=== PATIENT | female | born 1980 | race Hispanic/Latino ===

== ENCOUNTER → 2022-03-09 | Outpatient (CLI) | payer MEDICAID | END | disposition home or self-care (01) | LOC: WHH 10:28 | PROVIDERS: ATTEND Family Medicine | DX: L89.152 Pressure ulcer of sacral region, stage 2 (principal); S31.829A Unspecified open wound of left buttock, initial encounter; L02.31 Cutaneous abscess of buttock; I10 Essential (primary) hypertension; E78.5 Hyperlipidemia, unspecified; G82.21 Paraplegia, complete; M81.0 Age-related osteoporosis without current pathological fracture; Z79.899 Other long term (current) drug therapy; X58.XXXA Exposure to other specified factors, initial encounter; Y93.89 Activity, other specified; Y92.89 Other specified places as the place of occurrence of the external cause; Y99.8 Other external cause status | CPT/HCPCS: 97605; G0463 ==

== ENCOUNTER → 2022-03-23 | Outpatient (CLI) | payer MEDICAID | END | disposition home or self-care (01) | LOC: WHH 13:08 | PROVIDERS: ATTEND Family Medicine | DX: L89.152 Pressure ulcer of sacral region, stage 2 (principal); S31.829D Unspecified open wound of left buttock, subsequent encounter; L02.31 Cutaneous abscess of buttock; I10 Essential (primary) hypertension; E78.5 Hyperlipidemia, unspecified; G82.21 Paraplegia, complete; M81.0 Age-related osteoporosis without current pathological fracture; Z79.899 Other long term (current) drug therapy; X58.XXXD Exposure to other specified factors, subsequent encounter | CPT/HCPCS: 97605 ==

== ENCOUNTER → 2022-04-06 | Outpatient (CLI) | payer MEDICAID | END | disposition home or self-care (01) | LOC: WHH 13:32 | PROVIDERS: ATTEND Family Medicine | DX: L89.152 Pressure ulcer of sacral region, stage 2 (principal); L89.892 Pressure ulcer of other site, stage 2; S31.829D Unspecified open wound of left buttock, subsequent encounter; L02.31 Cutaneous abscess of buttock; I10 Essential (primary) hypertension; E78.5 Hyperlipidemia, unspecified; G82.21 Paraplegia, complete; M81.0 Age-related osteoporosis without current pathological fracture; Z79.899 Other long term (current) drug therapy; X58.XXXD Exposure to other specified factors, subsequent encounter | CPT/HCPCS: 97605 ==

== ENCOUNTER → 2022-04-20 | Outpatient (CLI) | payer MEDICAID | END | disposition home or self-care (01) | LOC: WHH 13:40 | PROVIDERS: ATTEND Family Medicine | DX: L02.31 Cutaneous abscess of buttock (principal); L89.892 Pressure ulcer of other site, stage 2; L89.152 Pressure ulcer of sacral region, stage 2; S31.829D Unspecified open wound of left buttock, subsequent encounter; I10 Essential (primary) hypertension; E78.5 Hyperlipidemia, unspecified; G82.21 Paraplegia, complete; M81.0 Age-related osteoporosis without current pathological fracture; Z79.899 Other long term (current) drug therapy; X58.XXXD Exposure to other specified factors, subsequent encounter | CPT/HCPCS: 11042; 97605 ==

== ENCOUNTER → 2022-05-04 | Outpatient (CLI) | payer MEDICAID | END | disposition home or self-care (01) | LOC: WHH 13:34 | PROVIDERS: ATTEND Family Medicine | DX: L02.31 Cutaneous abscess of buttock (principal); L89.892 Pressure ulcer of other site, stage 2; L89.152 Pressure ulcer of sacral region, stage 2; S31.829D Unspecified open wound of left buttock, subsequent encounter; I10 Essential (primary) hypertension; E78.5 Hyperlipidemia, unspecified; G82.21 Paraplegia, complete; M81.0 Age-related osteoporosis without current pathological fracture; Z79.899 Other long term (current) drug therapy; X58.XXXD Exposure to other specified factors, subsequent encounter | CPT/HCPCS: 97605; A6022; 99214 ==

== ENCOUNTER → 2022-05-18 | Outpatient (CLI) | payer MEDICAID | END | disposition home or self-care (01) | LOC: WHH 13:31 | PROVIDERS: ATTEND Family Medicine | DX: L02.31 Cutaneous abscess of buttock (principal); L89.892 Pressure ulcer of other site, stage 2; L89.152 Pressure ulcer of sacral region, stage 2; S31.829D Unspecified open wound of left buttock, subsequent encounter; I10 Essential (primary) hypertension; E78.5 Hyperlipidemia, unspecified; G82.21 Paraplegia, complete; M81.0 Age-related osteoporosis without current pathological fracture; Z79.899 Other long term (current) drug therapy; X58.XXXD Exposure to other specified factors, subsequent encounter | CPT/HCPCS: 99214; A4450 ==

== ENCOUNTER → 2022-05-29 | Outpatient (CLI) | payer MEDICAID ==
[~2022-05-29] MED LIST: BALSAM PERU/CASTOR OIL 60 GM TUBE TP ONE
== END | disposition home or self-care (01) ==
LOC: WHH 13:37
PROVIDERS: ATTEND Nurse Practitioner Family
DX: L02.31 Cutaneous abscess of buttock (principal); L89.892 Pressure ulcer of other site, stage 2; L89.152 Pressure ulcer of sacral region, stage 2; S31.829D Unspecified open wound of left buttock, subsequent encounter; I10 Essential (primary) hypertension; E78.5 Hyperlipidemia, unspecified; G82.21 Paraplegia, complete; M81.0 Age-related osteoporosis without current pathological fracture; Z79.899 Other long term (current) drug therapy; X58.XXXD Exposure to other specified factors, subsequent encounter
CPT/HCPCS: 97605; A6022

== ENCOUNTER → 2022-06-12 | Outpatient (CLI) | payer MEDICAID | LOC: WHH 13:54 | PROVIDERS: ATTEND Nurse Practitioner Family | DX: L02.31 Cutaneous abscess of buttock (principal); L89.892 Pressure ulcer of other site, stage 2; L89.152 Pressure ulcer of sacral region, stage 2; S31.829D Unspecified open wound of left buttock, subsequent encounter; I10 Essential (primary) hypertension; E78.5 Hyperlipidemia, unspecified; G82.21 Paraplegia, complete; M81.0 Age-related osteoporosis without current pathological fracture; Z79.899 Other long term (current) drug therapy; X58.XXXD Exposure to other specified factors, subsequent encounter | CPT/HCPCS: 11042; 97605; A6022 ==

== ENCOUNTER → 2022-06-26 | Outpatient (CLI) | payer MEDICAID | END | disposition home or self-care (01) | LOC: WHH 13:44 | PROVIDERS: ATTEND Nurse Practitioner Family | DX: L02.31 Cutaneous abscess of buttock (principal); L89.892 Pressure ulcer of other site, stage 2; L89.152 Pressure ulcer of sacral region, stage 2; S31.829D Unspecified open wound of left buttock, subsequent encounter; I10 Essential (primary) hypertension; E78.5 Hyperlipidemia, unspecified; G82.21 Paraplegia, complete; M81.0 Age-related osteoporosis without current pathological fracture; Z79.899 Other long term (current) drug therapy; X58.XXXD Exposure to other specified factors, subsequent encounter | CPT/HCPCS: 11042; 97605; A6022 ==

== ENCOUNTER → 2022-07-17 | Outpatient (CLI) | payer MEDICAID | END | disposition home or self-care (01) | LOC: WHH 13:37 | PROVIDERS: ATTEND Nurse Practitioner Family | DX: L02.31 Cutaneous abscess of buttock (principal); L89.152 Pressure ulcer of sacral region, stage 2; S31.829D Unspecified open wound of left buttock, subsequent encounter; E11.9 Type 2 diabetes mellitus without complications; I10 Essential (primary) hypertension; E78.5 Hyperlipidemia, unspecified; G82.21 Paraplegia, complete; M81.0 Age-related osteoporosis without current pathological fracture; Z79.899 Other long term (current) drug therapy; X58.XXXD Exposure to other specified factors, subsequent encounter | CPT/HCPCS: 87070; 87077; 87186; 99214; A6248; A6197 ×3; A4450 ==

== ENCOUNTER → 2022-07-24 | Outpatient (CLI) | payer MEDICAID | END | disposition home or self-care (01) | LOC: WHH 13:41 | PROVIDERS: ATTEND Nurse Practitioner Family | DX: L02.31 Cutaneous abscess of buttock (principal); L89.324 Pressure ulcer of left buttock, stage 4; L89.892 Pressure ulcer of other site, stage 2; L89.152 Pressure ulcer of sacral region, stage 2; S31.829D Unspecified open wound of left buttock, subsequent encounter; I10 Essential (primary) hypertension; E78.5 Hyperlipidemia, unspecified; G82.21 Paraplegia, complete; M81.0 Age-related osteoporosis without current pathological fracture; Z79.899 Other long term (current) drug therapy; X58.XXXD Exposure to other specified factors, subsequent encounter | CPT/HCPCS: 99214; G0463 ==

== ENCOUNTER → 2022-08-07 | Outpatient (CLI) | payer MEDICAID | END | disposition home or self-care (01) | LOC: WHH 11:06 | PROVIDERS: ATTEND Nurse Practitioner Family | DX: L02.31 Cutaneous abscess of buttock (principal); L89.324 Pressure ulcer of left buttock, stage 4; L89.152 Pressure ulcer of sacral region, stage 2; L89.892 Pressure ulcer of other site, stage 2; S31.829D Unspecified open wound of left buttock, subsequent encounter; E11.9 Type 2 diabetes mellitus without complications; I10 Essential (primary) hypertension; E78.5 Hyperlipidemia, unspecified; G82.21 Paraplegia, complete; M81.0 Age-related osteoporosis without current pathological fracture; Z79.899 Other long term (current) drug therapy; X58.XXXD Exposure to other specified factors, subsequent encounter | CPT/HCPCS: 99214; A6248 ==

== ENCOUNTER → 2022-09-11 | Outpatient (CLI) | payer MEDICAID | END | disposition home or self-care (01) | LOC: WHH 10:52 | PROVIDERS: ATTEND Nurse Practitioner Family | DX: L02.31 Cutaneous abscess of buttock (principal); L89.324 Pressure ulcer of left buttock, stage 4; L89.152 Pressure ulcer of sacral region, stage 2; L89.892 Pressure ulcer of other site, stage 2; I10 Essential (primary) hypertension; E11.9 Type 2 diabetes mellitus without complications; E78.5 Hyperlipidemia, unspecified; M81.0 Age-related osteoporosis without current pathological fracture; G82.21 Paraplegia, complete; Z79.84 Long term (current) use of oral hypoglycemic drugs; Z79.4 Long term (current) use of insulin; Z79.899 Other long term (current) drug therapy | CPT/HCPCS: 99214; A6022 ==

== ENCOUNTER → 2022-10-09 | Outpatient (CLI) | payer MEDICAID | END | disposition home or self-care (01) | LOC: WHH 11:12 | PROVIDERS: ATTEND Nurse Practitioner Family | DX: L02.31 Cutaneous abscess of buttock (principal); L89.324 Pressure ulcer of left buttock, stage 4; L89.152 Pressure ulcer of sacral region, stage 2; I10 Essential (primary) hypertension; E11.9 Type 2 diabetes mellitus without complications; E78.5 Hyperlipidemia, unspecified; G82.21 Paraplegia, complete; M81.0 Age-related osteoporosis without current pathological fracture; Z79.84 Long term (current) use of oral hypoglycemic drugs; Z79.4 Long term (current) use of insulin; Z79.899 Other long term (current) drug therapy | CPT/HCPCS: 97605; A6022 ==

== ENCOUNTER → 2022-10-30 | Outpatient (CLI) | payer MEDICAID | END | disposition home or self-care (01) | LOC: WHH 10:45 | PROVIDERS: ATTEND Nurse Practitioner Family | DX: L02.31 Cutaneous abscess of buttock (principal); L89.324 Pressure ulcer of left buttock, stage 4; L89.152 Pressure ulcer of sacral region, stage 2; I10 Essential (primary) hypertension; E11.9 Type 2 diabetes mellitus without complications; E78.5 Hyperlipidemia, unspecified; G82.21 Paraplegia, complete; M81.0 Age-related osteoporosis without current pathological fracture; Z79.84 Long term (current) use of oral hypoglycemic drugs; Z79.4 Long term (current) use of insulin; Z79.899 Other long term (current) drug therapy | CPT/HCPCS: 97605; A6022 ==

== ENCOUNTER → 2022-11-13 | Outpatient (CLI) | payer MEDICAID | END | disposition home or self-care (01) | LOC: WHH 10:48 | PROVIDERS: ATTEND Nurse Practitioner Family | DX: L02.31 Cutaneous abscess of buttock (principal); L89.324 Pressure ulcer of left buttock, stage 4; L89.152 Pressure ulcer of sacral region, stage 2; I10 Essential (primary) hypertension; E11.9 Type 2 diabetes mellitus without complications; E78.5 Hyperlipidemia, unspecified; G82.21 Paraplegia, complete; M81.0 Age-related osteoporosis without current pathological fracture; Z79.84 Long term (current) use of oral hypoglycemic drugs; Z79.4 Long term (current) use of insulin; Z79.899 Other long term (current) drug therapy | CPT/HCPCS: 97605; A6022 ==

== ENCOUNTER → 2022-11-27 | Outpatient (CLI) | payer MEDICAID | END | disposition home or self-care (01) | LOC: WHH 11:00 | PROVIDERS: ATTEND Nurse Practitioner Family | DX: L02.31 Cutaneous abscess of buttock (principal); L89.324 Pressure ulcer of left buttock, stage 4; L89.152 Pressure ulcer of sacral region, stage 2; I10 Essential (primary) hypertension; E11.9 Type 2 diabetes mellitus without complications; E78.5 Hyperlipidemia, unspecified; G82.21 Paraplegia, complete; M81.0 Age-related osteoporosis without current pathological fracture; Z79.84 Long term (current) use of oral hypoglycemic drugs; Z79.899 Other long term (current) drug therapy | CPT/HCPCS: 87070; 87077; 87186; 97605 ==

== ENCOUNTER → 2022-12-11 | Outpatient (CLI) | payer MEDICAID | END | disposition home or self-care (01) | LOC: WHH 10:54 | PROVIDERS: ATTEND Nurse Practitioner Family | DX: L02.31 Cutaneous abscess of buttock (principal); L89.324 Pressure ulcer of left buttock, stage 4; L89.152 Pressure ulcer of sacral region, stage 2; I10 Essential (primary) hypertension; E11.9 Type 2 diabetes mellitus without complications; E78.5 Hyperlipidemia, unspecified; G82.21 Paraplegia, complete; M81.0 Age-related osteoporosis without current pathological fracture; Z79.84 Long term (current) use of oral hypoglycemic drugs; Z79.899 Other long term (current) drug therapy | CPT/HCPCS: 99214; A6022 ==

== ENCOUNTER → 2022-12-25 | Outpatient (CLI) | payer MEDICAID | END | disposition home or self-care (01) | LOC: WHH 11:03 | PROVIDERS: ATTEND Nurse Practitioner Family | DX: L02.31 Cutaneous abscess of buttock (principal); L89.324 Pressure ulcer of left buttock, stage 4; L89.152 Pressure ulcer of sacral region, stage 2; I10 Essential (primary) hypertension; E11.9 Type 2 diabetes mellitus without complications; E78.5 Hyperlipidemia, unspecified; G82.21 Paraplegia, complete; M81.0 Age-related osteoporosis without current pathological fracture; Z79.84 Long term (current) use of oral hypoglycemic drugs; Z79.899 Other long term (current) drug therapy | CPT/HCPCS: 99214; A6022; A4450 ==

== ENCOUNTER → 2023-01-08 | Outpatient (CLI) | payer MEDICAID | END | disposition home or self-care (01) | LOC: WHH 10:53 | PROVIDERS: ATTEND Nurse Practitioner Family | DX: L02.31 Cutaneous abscess of buttock (principal); L89.324 Pressure ulcer of left buttock, stage 4; L89.152 Pressure ulcer of sacral region, stage 2; I10 Essential (primary) hypertension; E11.9 Type 2 diabetes mellitus without complications; E78.5 Hyperlipidemia, unspecified; G82.21 Paraplegia, complete; M81.0 Age-related osteoporosis without current pathological fracture; Z79.84 Long term (current) use of oral hypoglycemic drugs; Z79.899 Other long term (current) drug therapy | CPT/HCPCS: 87070; 99214; A6022 ==

== ENCOUNTER → 2023-01-29 | Outpatient (CLI) | payer MEDICAID | END | disposition home or self-care (01) | LOC: WHH 10:50 | PROVIDERS: ATTEND Nurse Practitioner Family | DX: L02.31 Cutaneous abscess of buttock (principal); L89.324 Pressure ulcer of left buttock, stage 4; G82.21 Paraplegia, complete; I10 Essential (primary) hypertension; E11.9 Type 2 diabetes mellitus without complications; E78.5 Hyperlipidemia, unspecified; M81.0 Age-related osteoporosis without current pathological fracture; Z79.84 Long term (current) use of oral hypoglycemic drugs; Z79.899 Other long term (current) drug therapy | CPT/HCPCS: 99214; A4450 ==

== ENCOUNTER → 2023-02-13 | Outpatient (CLI) | payer MEDICAID | END | disposition home or self-care (01) | LOC: WHH 11:19 | PROVIDERS: ATTEND Nurse Practitioner Family | DX: L02.31 Cutaneous abscess of buttock (principal); L89.324 Pressure ulcer of left buttock, stage 4; G82.21 Paraplegia, complete; I10 Essential (primary) hypertension; E11.9 Type 2 diabetes mellitus without complications; E78.5 Hyperlipidemia, unspecified; M81.0 Age-related osteoporosis without current pathological fracture; Z79.84 Long term (current) use of oral hypoglycemic drugs; Z79.899 Other long term (current) drug therapy | CPT/HCPCS: 87070; 72170; 99214; A4450; A6260 ==

== ENCOUNTER → 2023-02-19 | Outpatient (CLI) | payer MEDICAID | END | disposition home or self-care (01) | LOC: WHH 10:48 | PROVIDERS: ATTEND Nurse Practitioner Family | DX: L02.31 Cutaneous abscess of buttock (principal); L89.324 Pressure ulcer of left buttock, stage 4; G82.21 Paraplegia, complete; I10 Essential (primary) hypertension; E11.9 Type 2 diabetes mellitus without complications; E78.5 Hyperlipidemia, unspecified; M81.0 Age-related osteoporosis without current pathological fracture; Z79.84 Long term (current) use of oral hypoglycemic drugs; Z79.899 Other long term (current) drug therapy | CPT/HCPCS: 99214; A6260 ==

== ENCOUNTER → 2023-02-20 | Outpatient (CLI) | payer MEDICAID | END | disposition home or self-care (01) | LOC: RAH 15:43 | PROVIDERS: ATTEND Nurse Practitioner Family | DX: M25.552 Pain in left hip (principal) | CPT/HCPCS: 73502 ==

== ENCOUNTER → 2023-02-26 | Outpatient (CLI) | payer MEDICAID | END | disposition home or self-care (01) | LOC: WHH 11:03 | PROVIDERS: ATTEND Nurse Practitioner Family | DX: L02.31 Cutaneous abscess of buttock (principal); L89.324 Pressure ulcer of left buttock, stage 4; M25.552 Pain in left hip; G82.21 Paraplegia, complete; I10 Essential (primary) hypertension; E11.9 Type 2 diabetes mellitus without complications; E78.5 Hyperlipidemia, unspecified; M81.0 Age-related osteoporosis without current pathological fracture; Z79.84 Long term (current) use of oral hypoglycemic drugs; Z79.899 Other long term (current) drug therapy | CPT/HCPCS: 88311; 88304; 99214; A6260 ==

== ENCOUNTER → 2023-03-12 | Outpatient (CLI) | payer MEDICAID | END | disposition home or self-care (01) | LOC: WHH 11:06 | PROVIDERS: ATTEND Nurse Practitioner Family | DX: L02.31 Cutaneous abscess of buttock (principal); L89.324 Pressure ulcer of left buttock, stage 4; M25.552 Pain in left hip; G82.21 Paraplegia, complete; I10 Essential (primary) hypertension; E11.9 Type 2 diabetes mellitus without complications; E78.5 Hyperlipidemia, unspecified; M81.0 Age-related osteoporosis without current pathological fracture; Z79.84 Long term (current) use of oral hypoglycemic drugs; Z79.899 Other long term (current) drug therapy | CPT/HCPCS: 87070; 99214; A6248 ==

== ENCOUNTER → 2023-03-21 | Outpatient (CLI) | payer MEDICAID | END | disposition home or self-care (01) | LOC: RAH 14:55 | PROVIDERS: ATTEND Nurse Practitioner Family | DX: L89.324 Pressure ulcer of left buttock, stage 4 (principal); M79.89 Other specified soft tissue disorders | CPT/HCPCS: 73721 ==

== ENCOUNTER → 2023-03-26 | Outpatient (CLI) | payer MEDICAID | END | disposition home or self-care (01) | LOC: WHH 10:59 | PROVIDERS: ATTEND Nurse Practitioner Family | DX: L89.324 Pressure ulcer of left buttock, stage 4 (principal); L02.31 Cutaneous abscess of buttock; G82.21 Paraplegia, complete; I10 Essential (primary) hypertension; E11.9 Type 2 diabetes mellitus without complications; E78.5 Hyperlipidemia, unspecified; M25.552 Pain in left hip; M86.18 Other acute osteomyelitis, other site; M81.0 Age-related osteoporosis without current pathological fracture; Z79.4 Long term (current) use of insulin; Z79.84 Long term (current) use of oral hypoglycemic drugs; Z79.899 Other long term (current) drug therapy | CPT/HCPCS: 99214; A4450 ==

== ENCOUNTER → 2023-04-16 | Outpatient (CLI) | payer MEDICAID | END | disposition home or self-care (01) | LOC: WHH 10:31 | PROVIDERS: ATTEND Nurse Practitioner Family | DX: L89.324 Pressure ulcer of left buttock, stage 4 (principal); L02.31 Cutaneous abscess of buttock; G82.21 Paraplegia, complete; I10 Essential (primary) hypertension; E11.9 Type 2 diabetes mellitus without complications; E78.5 Hyperlipidemia, unspecified; M25.552 Pain in left hip; M86.18 Other acute osteomyelitis, other site; M81.0 Age-related osteoporosis without current pathological fracture; Z79.4 Long term (current) use of insulin; Z79.84 Long term (current) use of oral hypoglycemic drugs; Z79.899 Other long term (current) drug therapy | CPT/HCPCS: 99214; A6248; A6021; A6197; A4450 ==

== ENCOUNTER → 2023-04-30 | Outpatient (CLI) | payer MEDICAID | END | disposition home or self-care (01) | LOC: WHH 10:58 | PROVIDERS: ATTEND Nurse Practitioner Family | DX: L89.324 Pressure ulcer of left buttock, stage 4 (principal); L02.31 Cutaneous abscess of buttock; G82.21 Paraplegia, complete; I10 Essential (primary) hypertension; E11.9 Type 2 diabetes mellitus without complications; E78.5 Hyperlipidemia, unspecified; M25.552 Pain in left hip; M86.18 Other acute osteomyelitis, other site; M81.0 Age-related osteoporosis without current pathological fracture; Z79.4 Long term (current) use of insulin; Z79.84 Long term (current) use of oral hypoglycemic drugs; Z79.899 Other long term (current) drug therapy | CPT/HCPCS: 99214; A6021; A6197 ==

== ENCOUNTER → 2023-05-14 | Outpatient (CLI) | payer MEDICAID | END | disposition home or self-care (01) | LOC: WHH 10:53 | PROVIDERS: ATTEND Nurse Practitioner Family | DX: L89.324 Pressure ulcer of left buttock, stage 4 (principal); L02.31 Cutaneous abscess of buttock; G82.21 Paraplegia, complete; I10 Essential (primary) hypertension; E11.9 Type 2 diabetes mellitus without complications; E78.5 Hyperlipidemia, unspecified; M25.552 Pain in left hip; M86.18 Other acute osteomyelitis, other site; M81.0 Age-related osteoporosis without current pathological fracture; Z79.84 Long term (current) use of oral hypoglycemic drugs; Z79.4 Long term (current) use of insulin; Z79.899 Other long term (current) drug therapy | CPT/HCPCS: 99214; A6248; A6021; A6197; A4450 ==

== ENCOUNTER → 2023-05-28 | Outpatient (CLI) | payer MEDICAID ==
[2023-05-28 12:53] LABS: BASOPHILS # (AUTO) 0.06 K/uL (0.00-0.20); BASOPHILS % (AUTO) 0.4 % (0.0-5.0); EOSINOPHILS % (AUTO) 1.3 % (0.0-8.0); HEMATOCRIT 40.1 % (36-48); IMMATURE GRANULOCYTE ABSOLUTE 0.06 K/uL (0-1); LYMPHOCYTES # (AUTO) 2.3 K/uL (1.0-4.8); LYMPHOCYTES % (AUTO) 15.5 % (21.0-51.0); MEAN CORPUSCULAR HEMOGLOBIN 24.2 pg (27.0-33.0); MEAN CORPUSCULAR HGB CONC 30.2 g/dL (32.0-36.0); MONOCYTES # (AUTO) 0.8 K/uL (0.1-1.0); MONOCYTES % (AUTO) 5.6 % (3.0-13.0); NEUTROPHILS # (AUTO) 11.5 K/uL (1.8-7.7); NEUTROPHILS % (AUTO) 76.8 % (40.0-77.0); PLATELET COUNT (AUTO) 477 K/uL (130-400); RED BLOOD CELL COUNT(AUTO) 5.01 MIL/uL (4.00-5.50); RED CELL DISTRIBUTION WIDTH 14.7 % (11.0-15.5)
[2023-05-28 13:25] LABS: ALBUMIN 3.3 g/dL (3.5-5.0); BILIRUBIN,TOTAL 0.2 mg/dL (0.2-1.0); CREATININE 0.6 mg/dL (0.5-1.0); POTASSIUM 5.1 mmol/L (3.5-5.1); TOTAL PROTEIN, SERUM 8.2 g/dL (6.0-8.3)
== END | disposition home or self-care (01) ==
LOC: WHH 10:58
PROVIDERS: ATTEND Nurse Practitioner Family
DX: L89.324 Pressure ulcer of left buttock, stage 4 (principal); L02.31 Cutaneous abscess of buttock; E11.9 Type 2 diabetes mellitus without complications; I10 Essential (primary) hypertension; E78.5 Hyperlipidemia, unspecified; G82.21 Paraplegia, complete; M86.68 Other chronic osteomyelitis, other site; M81.0 Age-related osteoporosis without current pathological fracture; M25.552 Pain in left hip; Z79.84 Long term (current) use of oral hypoglycemic drugs; Z79.4 Long term (current) use of insulin; Z79.899 Other long term (current) drug therapy
CPT/HCPCS: 80053; 85025; 36415; 71045; 93005; 99214; A6021; A6197

== ENCOUNTER → 2023-06-11 | Outpatient (CLI) | payer MEDICAID | END | disposition home or self-care (01) | LOC: WHH 12:58 | PROVIDERS: ATTEND Nurse Practitioner Family | DX: L89.324 Pressure ulcer of left buttock, stage 4 (principal); L02.31 Cutaneous abscess of buttock; E11.9 Type 2 diabetes mellitus without complications; I10 Essential (primary) hypertension; E78.5 Hyperlipidemia, unspecified; G82.21 Paraplegia, complete; M86.68 Other chronic osteomyelitis, other site; M81.0 Age-related osteoporosis without current pathological fracture; M25.552 Pain in left hip; Z79.84 Long term (current) use of oral hypoglycemic drugs; Z79.4 Long term (current) use of insulin; Z79.899 Other long term (current) drug therapy | CPT/HCPCS: 99214; A6021; A6197 ==

== ENCOUNTER → 2023-06-25 | Outpatient (CLI) | payer MEDICAID | END | disposition home or self-care (01) | LOC: WHH 13:29 | PROVIDERS: ATTEND Nurse Practitioner Family | DX: L89.324 Pressure ulcer of left buttock, stage 4 (principal); L02.31 Cutaneous abscess of buttock; E11.9 Type 2 diabetes mellitus without complications; I10 Essential (primary) hypertension; G82.21 Paraplegia, complete; M86.68 Other chronic osteomyelitis, other site; M81.0 Age-related osteoporosis without current pathological fracture; M25.552 Pain in left hip; E78.5 Hyperlipidemia, unspecified; Z79.84 Long term (current) use of oral hypoglycemic drugs; Z79.4 Long term (current) use of insulin; Z79.899 Other long term (current) drug therapy | CPT/HCPCS: 99214; A6021; A6197; A4450 ==

== ENCOUNTER → 2023-07-10 | Outpatient (CLI) | payer MEDICAID | END | disposition home or self-care (01) | LOC: WHH 13:24 | PROVIDERS: ATTEND Nurse Practitioner Family | DX: L89.324 Pressure ulcer of left buttock, stage 4 (principal); L02.31 Cutaneous abscess of buttock; E11.9 Type 2 diabetes mellitus without complications; I10 Essential (primary) hypertension; G82.21 Paraplegia, complete; M86.68 Other chronic osteomyelitis, other site; M81.0 Age-related osteoporosis without current pathological fracture; M25.552 Pain in left hip; E78.5 Hyperlipidemia, unspecified; Z79.84 Long term (current) use of oral hypoglycemic drugs; Z79.4 Long term (current) use of insulin; Z79.899 Other long term (current) drug therapy | CPT/HCPCS: 99214; A6021; A6197 ==

== ENCOUNTER → 2023-08-07 | Outpatient (CLI) | payer MEDICAID | END | disposition home or self-care (01) | LOC: WHH 11:34 | PROVIDERS: ATTEND Nurse Practitioner Family | DX: L89.324 Pressure ulcer of left buttock, stage 4 (principal); L02.31 Cutaneous abscess of buttock; E11.9 Type 2 diabetes mellitus without complications; I10 Essential (primary) hypertension; G82.21 Paraplegia, complete; M86.68 Other chronic osteomyelitis, other site; M81.0 Age-related osteoporosis without current pathological fracture; M25.552 Pain in left hip; E78.5 Hyperlipidemia, unspecified; Z79.84 Long term (current) use of oral hypoglycemic drugs; Z79.4 Long term (current) use of insulin; Z79.899 Other long term (current) drug therapy | CPT/HCPCS: 87070; 87086; 87186; 99214; A6197; A4450; A6260 ×2 ==

== ENCOUNTER → 2023-08-30 | Outpatient (CLI) | payer MEDICAID | END | disposition home or self-care (01) | LOC: WHH 11:03 | PROVIDERS: ATTEND Nurse Practitioner Family | DX: L89.324 Pressure ulcer of left buttock, stage 4 (principal); L02.31 Cutaneous abscess of buttock; E11.9 Type 2 diabetes mellitus without complications; I10 Essential (primary) hypertension; E78.5 Hyperlipidemia, unspecified; G82.21 Paraplegia, complete; M25.552 Pain in left hip; M86.68 Other chronic osteomyelitis, other site; M81.0 Age-related osteoporosis without current pathological fracture; Z79.84 Long term (current) use of oral hypoglycemic drugs; Z79.4 Long term (current) use of insulin; Z79.899 Other long term (current) drug therapy | CPT/HCPCS: 99214; A6248; A6021 ==

== ENCOUNTER → 2023-09-13 | Outpatient (CLI) | payer MEDICAID ==
[~2023-09-13] MED LIST changes: -BALSAM PERU/CASTOR OIL 60 GM TUBE TP ONE; +HONEY 1 APPL/ML TUBE TP ONE
== END | disposition home or self-care (01) ==
LOC: WHH 11:14
PROVIDERS: ATTEND Family Medicine
DX: L89.324 Pressure ulcer of left buttock, stage 4 (principal); E11.9 Type 2 diabetes mellitus without complications; I10 Essential (primary) hypertension; E78.5 Hyperlipidemia, unspecified; G82.21 Paraplegia, complete; M25.552 Pain in left hip; M86.68 Other chronic osteomyelitis, other site; M81.0 Age-related osteoporosis without current pathological fracture; Z79.84 Long term (current) use of oral hypoglycemic drugs; Z79.4 Long term (current) use of insulin; Z79.899 Other long term (current) drug therapy
CPT/HCPCS: 99214; A6197; A4450

== ENCOUNTER → 2023-09-27 | Outpatient (CLI) | payer MEDICAID | END | disposition home or self-care (01) | LOC: WHH 10:33 | PROVIDERS: ATTEND Family Medicine | DX: L89.324 Pressure ulcer of left buttock, stage 4 (principal); G82.21 Paraplegia, complete; E11.9 Type 2 diabetes mellitus without complications; I10 Essential (primary) hypertension; E78.5 Hyperlipidemia, unspecified; M81.0 Age-related osteoporosis without current pathological fracture; M25.552 Pain in left hip; M86.68 Other chronic osteomyelitis, other site; Z79.84 Long term (current) use of oral hypoglycemic drugs; Z79.4 Long term (current) use of insulin; Z79.899 Other long term (current) drug therapy | CPT/HCPCS: 99214 ==

== ENCOUNTER → 2023-10-25 | Outpatient (CLI) | payer MEDICAID | END | disposition home or self-care (01) | LOC: WHH 10:55 | PROVIDERS: ATTEND Family Medicine | DX: L89.324 Pressure ulcer of left buttock, stage 4 (principal); G82.21 Paraplegia, complete; E11.9 Type 2 diabetes mellitus without complications; I10 Essential (primary) hypertension; E78.5 Hyperlipidemia, unspecified; M81.0 Age-related osteoporosis without current pathological fracture; M25.552 Pain in left hip; M86.68 Other chronic osteomyelitis, other site; Z79.84 Long term (current) use of oral hypoglycemic drugs; Z79.899 Other long term (current) drug therapy | CPT/HCPCS: 99214; A4450 ==

== ENCOUNTER → 2023-11-08 | Outpatient (CLI) | payer MEDICAID ==
[~2023-11-08] MED LIST changes: -HONEY 1 APPL/ML TUBE TP ONE; +LIDOCAINE HCL 1% 20 ML VIAL ONE
== END | disposition home or self-care (01) ==
LOC: WHH 10:56
PROVIDERS: ATTEND Family Medicine
DX: L89.324 Pressure ulcer of left buttock, stage 4 (principal); G82.21 Paraplegia, complete; E11.9 Type 2 diabetes mellitus without complications; I10 Essential (primary) hypertension; E78.5 Hyperlipidemia, unspecified; M81.0 Age-related osteoporosis without current pathological fracture; M25.552 Pain in left hip; M86.68 Other chronic osteomyelitis, other site; Z79.84 Long term (current) use of oral hypoglycemic drugs; Z79.899 Other long term (current) drug therapy
CPT/HCPCS: 11042; A6260

== ENCOUNTER → 2023-11-15 | Outpatient (CLI) | payer MEDICAID | END | disposition home or self-care (01) | LOC: WHH 11:01 | PROVIDERS: ATTEND Family Medicine | DX: L89.324 Pressure ulcer of left buttock, stage 4 (principal); E11.9 Type 2 diabetes mellitus without complications; I10 Essential (primary) hypertension; E78.5 Hyperlipidemia, unspecified; G82.21 Paraplegia, complete; M25.552 Pain in left hip; M86.68 Other chronic osteomyelitis, other site; M81.0 Age-related osteoporosis without current pathological fracture; Z79.84 Long term (current) use of oral hypoglycemic drugs; Z79.899 Other long term (current) drug therapy | CPT/HCPCS: 99214; A6197 ×2; A4450; A6260 ==

== ENCOUNTER → 2023-12-13 | Outpatient (CLI) | payer MEDICAID ==
[~2023-12-13] MED LIST changes: -LIDOCAINE HCL 1% 20 ML VIAL ONE; +LIDOCAINE HCL 4% LTA SOL 4 ML VIAL ONE
== END | disposition home or self-care (01) ==
LOC: WHH 10:58
PROVIDERS: ATTEND Family Medicine
DX: L89.324 Pressure ulcer of left buttock, stage 4 (principal); G82.21 Paraplegia, complete; E11.9 Type 2 diabetes mellitus without complications; I10 Essential (primary) hypertension; E78.5 Hyperlipidemia, unspecified; M81.0 Age-related osteoporosis without current pathological fracture; M86.68 Other chronic osteomyelitis, other site; M25.552 Pain in left hip; Z79.4 Long term (current) use of insulin; Z79.84 Long term (current) use of oral hypoglycemic drugs; Z79.899 Other long term (current) drug therapy
CPT/HCPCS: 99214; A6010; A6197 ×4

== ENCOUNTER → 2024-01-03 | Outpatient (CLI) | payer MEDICAID | END | disposition home or self-care (01) | LOC: WHH 11:15 | PROVIDERS: ATTEND Family Medicine | DX: L89.324 Pressure ulcer of left buttock, stage 4 (principal); G82.21 Paraplegia, complete; E11.9 Type 2 diabetes mellitus without complications; I10 Essential (primary) hypertension; E78.5 Hyperlipidemia, unspecified; M25.552 Pain in left hip; M86.68 Other chronic osteomyelitis, other site; M81.0 Age-related osteoporosis without current pathological fracture; Z79.4 Long term (current) use of insulin; Z79.84 Long term (current) use of oral hypoglycemic drugs; Z79.899 Other long term (current) drug therapy | CPT/HCPCS: 99214; A6010; A6197 ×4; A6196 ==

== ENCOUNTER → 2024-01-17 | Outpatient (CLI) | payer MEDICAID | END | disposition home or self-care (01) | LOC: WHH 10:50 | PROVIDERS: ATTEND Family Medicine | DX: L89.324 Pressure ulcer of left buttock, stage 4 (principal); E11.9 Type 2 diabetes mellitus without complications; I10 Essential (primary) hypertension; E78.5 Hyperlipidemia, unspecified; G82.21 Paraplegia, complete; M25.552 Pain in left hip; M86.68 Other chronic osteomyelitis, other site; M81.0 Age-related osteoporosis without current pathological fracture; Z79.4 Long term (current) use of insulin; Z79.84 Long term (current) use of oral hypoglycemic drugs; Z79.899 Other long term (current) drug therapy | CPT/HCPCS: 99214; A6197 ×2 ==

== ENCOUNTER → 2024-01-31 | Outpatient (CLI) | payer MEDICAID ==
[~2024-01-31] MED LIST changes: +HONEY 1 APPL/ML TUBE TP ONE
== END | disposition home or self-care (01) ==
LOC: WHH 10:19
PROVIDERS: ATTEND Family Medicine
DX: L89.324 Pressure ulcer of left buttock, stage 4 (principal); E11.9 Type 2 diabetes mellitus without complications; I10 Essential (primary) hypertension; E78.5 Hyperlipidemia, unspecified; G82.21 Paraplegia, complete; M25.552 Pain in left hip; M86.68 Other chronic osteomyelitis, other site; M81.0 Age-related osteoporosis without current pathological fracture; Z79.4 Long term (current) use of insulin; Z79.899 Other long term (current) drug therapy; Z79.84 Long term (current) use of oral hypoglycemic drugs
CPT/HCPCS: 99214; A6010; A6197; A4450

== ENCOUNTER → 2024-02-14 | Outpatient (CLI) | payer MEDICAID | END | disposition home or self-care (01) | LOC: WHH 10:44 | PROVIDERS: ATTEND Family Medicine | DX: L89.324 Pressure ulcer of left buttock, stage 4 (principal); E11.9 Type 2 diabetes mellitus without complications; I10 Essential (primary) hypertension; E78.5 Hyperlipidemia, unspecified; G82.21 Paraplegia, complete; M25.552 Pain in left hip; M86.68 Other chronic osteomyelitis, other site; M81.0 Age-related osteoporosis without current pathological fracture; Z79.4 Long term (current) use of insulin; Z79.899 Other long term (current) drug therapy; Z79.84 Long term (current) use of oral hypoglycemic drugs | CPT/HCPCS: 99214; A6248; A6010; A6197 ×6; A4450 ==

== ENCOUNTER → 2024-02-28 | Outpatient (CLI) | payer MEDICAID | END | disposition home or self-care (01) | LOC: WHH 11:25 | PROVIDERS: ATTEND Family Medicine | DX: L89.324 Pressure ulcer of left buttock, stage 4 (principal); E11.9 Type 2 diabetes mellitus without complications; I10 Essential (primary) hypertension; E78.5 Hyperlipidemia, unspecified; G82.21 Paraplegia, complete; M25.552 Pain in left hip; M86.68 Other chronic osteomyelitis, other site; M81.0 Age-related osteoporosis without current pathological fracture; Z79.4 Long term (current) use of insulin; Z79.899 Other long term (current) drug therapy; Z79.84 Long term (current) use of oral hypoglycemic drugs | CPT/HCPCS: 99214; A6010; A6197 ×4 ==

== ENCOUNTER → 2024-03-13 | Outpatient (CLI) | payer MEDICAID ==
[~2024-03-13] MED LIST changes: -LIDOCAINE HCL 4% LTA SOL 4 ML VIAL ONE
== END | disposition home or self-care (01) ==
LOC: WHH 10:20
PROVIDERS: ATTEND Family Medicine
DX: L89.324 Pressure ulcer of left buttock, stage 4 (principal); E11.9 Type 2 diabetes mellitus without complications; I10 Essential (primary) hypertension; E78.5 Hyperlipidemia, unspecified; G82.21 Paraplegia, complete; M25.552 Pain in left hip; M86.68 Other chronic osteomyelitis, other site; M81.0 Age-related osteoporosis without current pathological fracture; Z79.4 Long term (current) use of insulin; Z79.899 Other long term (current) drug therapy; Z79.84 Long term (current) use of oral hypoglycemic drugs
CPT/HCPCS: 87070; 87086; 87186; 99214; A6010; A6197

== ENCOUNTER → 2024-03-27 | Outpatient (CLI) | payer MEDICAID | END | disposition home or self-care (01) | LOC: WHH 10:27 | PROVIDERS: ATTEND Family Medicine | DX: L89.324 Pressure ulcer of left buttock, stage 4 (principal); E11.9 Type 2 diabetes mellitus without complications; I10 Essential (primary) hypertension; E78.5 Hyperlipidemia, unspecified; G82.21 Paraplegia, complete; M25.552 Pain in left hip; M86.68 Other chronic osteomyelitis, other site; M81.0 Age-related osteoporosis without current pathological fracture; Z79.4 Long term (current) use of insulin; Z79.899 Other long term (current) drug therapy; Z79.84 Long term (current) use of oral hypoglycemic drugs | CPT/HCPCS: 99214; A6010; A6197; A4450 ==

== ENCOUNTER → 2024-04-10 | Outpatient (CLI) | payer MEDICAID | END | disposition home or self-care (01) | LOC: WHH 11:05 | PROVIDERS: ATTEND Family Medicine | DX: L89.324 Pressure ulcer of left buttock, stage 4 (principal); E11.9 Type 2 diabetes mellitus without complications; I10 Essential (primary) hypertension; E78.5 Hyperlipidemia, unspecified; G82.21 Paraplegia, complete; M25.552 Pain in left hip; M86.68 Other chronic osteomyelitis, other site; M81.0 Age-related osteoporosis without current pathological fracture; Z79.4 Long term (current) use of insulin; Z79.899 Other long term (current) drug therapy; Z79.84 Long term (current) use of oral hypoglycemic drugs | CPT/HCPCS: 99214; A6010; A6197 ==

== ENCOUNTER → 2024-04-24 | Outpatient (CLI) | payer MEDICAID | END | disposition home or self-care (01) | LOC: WHH 11:07 | PROVIDERS: ATTEND Family Medicine | DX: L89.324 Pressure ulcer of left buttock, stage 4 (principal); E11.69 Type 2 diabetes mellitus with other specified complication; M86.68 Other chronic osteomyelitis, other site; I10 Essential (primary) hypertension; E78.5 Hyperlipidemia, unspecified; G82.21 Paraplegia, complete; M25.552 Pain in left hip; M81.0 Age-related osteoporosis without current pathological fracture; Z79.4 Long term (current) use of insulin; Z79.899 Other long term (current) drug therapy; Z79.84 Long term (current) use of oral hypoglycemic drugs | CPT/HCPCS: 99214; A6010; A6197; A4450 ==

== ENCOUNTER → 2024-05-22 | Outpatient (CLI) | payer MEDICAID | END | disposition home or self-care (01) | LOC: WHH 10:41 | PROVIDERS: ATTEND Family Medicine | DX: L89.324 Pressure ulcer of left buttock, stage 4 (principal); E11.69 Type 2 diabetes mellitus with other specified complication; M86.68 Other chronic osteomyelitis, other site; I10 Essential (primary) hypertension; E78.5 Hyperlipidemia, unspecified; G82.21 Paraplegia, complete; M25.552 Pain in left hip; M81.0 Age-related osteoporosis without current pathological fracture; Z79.4 Long term (current) use of insulin; Z79.899 Other long term (current) drug therapy; Z79.84 Long term (current) use of oral hypoglycemic drugs | CPT/HCPCS: 99214; A6010; A6197; A4450 ==

== ENCOUNTER → 2024-06-05 | Outpatient (CLI) | payer MEDICAID | END | disposition home or self-care (01) | LOC: WHH 10:55 | PROVIDERS: ATTEND Family Medicine | DX: L89.324 Pressure ulcer of left buttock, stage 4 (principal); E11.69 Type 2 diabetes mellitus with other specified complication; M86.68 Other chronic osteomyelitis, other site; I10 Essential (primary) hypertension; E78.5 Hyperlipidemia, unspecified; G82.21 Paraplegia, complete; M25.552 Pain in left hip; M81.0 Age-related osteoporosis without current pathological fracture; Z79.4 Long term (current) use of insulin; Z79.84 Long term (current) use of oral hypoglycemic drugs | CPT/HCPCS: 99214; A6010; A6197 ==

== ENCOUNTER → 2024-06-19 | Outpatient (CLI) | payer MEDICAID | END | disposition home or self-care (01) | LOC: WHH 10:41 | PROVIDERS: ATTEND Family Medicine | DX: L89.324 Pressure ulcer of left buttock, stage 4 (principal); E11.69 Type 2 diabetes mellitus with other specified complication; M86.68 Other chronic osteomyelitis, other site; G82.21 Paraplegia, complete; I10 Essential (primary) hypertension; E78.5 Hyperlipidemia, unspecified; M25.552 Pain in left hip; M81.0 Age-related osteoporosis without current pathological fracture; Z79.4 Long term (current) use of insulin; Z79.84 Long term (current) use of oral hypoglycemic drugs | CPT/HCPCS: 99214; A6197; A4450 ==

== ENCOUNTER → 2024-07-03 | Outpatient (CLI) | payer MEDICAID | END | disposition home or self-care (01) | LOC: WHH 11:05 | PROVIDERS: ATTEND Family Medicine | DX: L89.324 Pressure ulcer of left buttock, stage 4 (principal); E11.69 Type 2 diabetes mellitus with other specified complication; M86.68 Other chronic osteomyelitis, other site; G82.21 Paraplegia, complete; I10 Essential (primary) hypertension; E78.5 Hyperlipidemia, unspecified; M25.552 Pain in left hip; M81.0 Age-related osteoporosis without current pathological fracture; Z79.4 Long term (current) use of insulin; Z79.84 Long term (current) use of oral hypoglycemic drugs | CPT/HCPCS: 11042; A6197 ×2 ==

== ENCOUNTER → 2024-07-17 | Outpatient (CLI) | payer MEDICAID | END | disposition home or self-care (01) | LOC: WHH 11:05 | PROVIDERS: ATTEND Family Medicine | DX: L89.324 Pressure ulcer of left buttock, stage 4 (principal); E11.69 Type 2 diabetes mellitus with other specified complication; M86.68 Other chronic osteomyelitis, other site; G82.21 Paraplegia, complete; I10 Essential (primary) hypertension; E78.5 Hyperlipidemia, unspecified; M25.552 Pain in left hip; M81.0 Age-related osteoporosis without current pathological fracture; Z79.4 Long term (current) use of insulin; Z79.84 Long term (current) use of oral hypoglycemic drugs | CPT/HCPCS: 99214; A6197; A4450 ==

== ENCOUNTER → 2024-07-31 | Outpatient (CLI) | payer MEDICAID | END | disposition home or self-care (01) | LOC: WHH 10:52 | PROVIDERS: ATTEND Family Medicine | DX: L89.324 Pressure ulcer of left buttock, stage 4 (principal); E11.69 Type 2 diabetes mellitus with other specified complication; M86.68 Other chronic osteomyelitis, other site; G82.21 Paraplegia, complete; I10 Essential (primary) hypertension; E78.5 Hyperlipidemia, unspecified; M25.552 Pain in left hip; M81.0 Age-related osteoporosis without current pathological fracture; Z79.4 Long term (current) use of insulin; Z79.84 Long term (current) use of oral hypoglycemic drugs | CPT/HCPCS: 87070; 99214; A6010; A6197 ×6 ==

== ENCOUNTER → 2024-08-14 | Outpatient (CLI) | payer MEDICAID | END | disposition home or self-care (01) | LOC: WHH 10:56 | PROVIDERS: ATTEND Family Medicine | DX: L89.324 Pressure ulcer of left buttock, stage 4 (principal); E11.69 Type 2 diabetes mellitus with other specified complication; M86.68 Other chronic osteomyelitis, other site; G82.21 Paraplegia, complete; I10 Essential (primary) hypertension; E78.5 Hyperlipidemia, unspecified; M25.552 Pain in left hip; M81.0 Age-related osteoporosis without current pathological fracture; Z79.4 Long term (current) use of insulin; Z79.84 Long term (current) use of oral hypoglycemic drugs | CPT/HCPCS: 99214; A6010; A6197 ×9; A4450 ==

== ENCOUNTER → 2024-09-11 | Outpatient (CLI) | payer MEDICAID | END | disposition home or self-care (01) | LOC: WHH 10:57 | PROVIDERS: ATTEND Family Medicine | DX: L89.324 Pressure ulcer of left buttock, stage 4 (principal); E11.69 Type 2 diabetes mellitus with other specified complication; M86.68 Other chronic osteomyelitis, other site; I10 Essential (primary) hypertension; E78.5 Hyperlipidemia, unspecified; G82.21 Paraplegia, complete; M25.552 Pain in left hip; M81.0 Age-related osteoporosis without current pathological fracture; Z79.4 Long term (current) use of insulin; Z79.84 Long term (current) use of oral hypoglycemic drugs | CPT/HCPCS: 99214; A6021; A6197 ==

== ENCOUNTER → 2024-09-25 | Outpatient (CLI) | payer MEDICAID | END | disposition home or self-care (01) | LOC: WHH 10:56 | PROVIDERS: ATTEND Family Medicine | DX: L89.324 Pressure ulcer of left buttock, stage 4 (principal); G82.21 Paraplegia, complete; E11.69 Type 2 diabetes mellitus with other specified complication; M86.68 Other chronic osteomyelitis, other site; I10 Essential (primary) hypertension; E78.5 Hyperlipidemia, unspecified; M25.552 Pain in left hip; M81.0 Age-related osteoporosis without current pathological fracture; Z79.4 Long term (current) use of insulin; Z79.84 Long term (current) use of oral hypoglycemic drugs | CPT/HCPCS: 99214; A6021; A6197; A4450 ==

== ENCOUNTER → 2024-11-13 | Outpatient (CLI) | payer MEDICAID | END | disposition home or self-care (01) | LOC: WHH 11:11 | PROVIDERS: ATTEND Family Medicine | DX: L89.324 Pressure ulcer of left buttock, stage 4 (principal); E11.69 Type 2 diabetes mellitus with other specified complication; M86.68 Other chronic osteomyelitis, other site; I10 Essential (primary) hypertension; E78.5 Hyperlipidemia, unspecified; G82.21 Paraplegia, complete; M25.552 Pain in left hip; M81.0 Age-related osteoporosis without current pathological fracture; Z79.4 Long term (current) use of insulin; Z79.84 Long term (current) use of oral hypoglycemic drugs | CPT/HCPCS: 99214; A6021; A6197 ×10; A4450 ==

== ENCOUNTER → 2024-11-27 | Outpatient (CLI) | payer MEDICAID | END | disposition home or self-care (01) | LOC: WHH 11:00 | PROVIDERS: ATTEND Family Medicine | DX: L89.324 Pressure ulcer of left buttock, stage 4 (principal); E11.69 Type 2 diabetes mellitus with other specified complication; M86.68 Other chronic osteomyelitis, other site; I10 Essential (primary) hypertension; E78.5 Hyperlipidemia, unspecified; G82.21 Paraplegia, complete; M25.552 Pain in left hip; M81.0 Age-related osteoporosis without current pathological fracture; Z79.4 Long term (current) use of insulin; Z79.84 Long term (current) use of oral hypoglycemic drugs | CPT/HCPCS: 99214; A6021; A6197 ==

== ENCOUNTER → 2025-01-22 | Outpatient (CLI) | payer MEDICAID | END | disposition home or self-care (01) | LOC: WHH 10:51 | PROVIDERS: ATTEND Family Medicine | DX: L89.324 Pressure ulcer of left buttock, stage 4 (principal); G82.21 Paraplegia, complete; E11.69 Type 2 diabetes mellitus with other specified complication; M86.68 Other chronic osteomyelitis, other site; I10 Essential (primary) hypertension; E78.5 Hyperlipidemia, unspecified; M25.552 Pain in left hip; M81.0 Age-related osteoporosis without current pathological fracture; Z79.4 Long term (current) use of insulin; Z79.84 Long term (current) use of oral hypoglycemic drugs | CPT/HCPCS: 99214; A6021; A6010; A6197; A4450 ==